=== PATIENT | male | born 1955 | race Two or more races ===

== ENCOUNTER → 2017-05-06 | Outpatient (CLI) | payer OTHER ==
--- NOTE | 2017-05-06 10:13 | Diagnostic Imaging Report ---
PROCEDURE:US LIVER COMPARISON:[facility], US, US ABDOMEN COMPLETE, 02/08/2015, 8:05. INDICATIONS:elevated LFTs TECHNIQUE: Mercado scale and color Doppler ultrasound liver FINDINGS: Right liver span 16.7 cm. The liver is diffusely echogenic and coarsened. No intrahepatic bile duct dilation. Portal vein diameter 1.3 cm; normal flow direction. Normal gallbladder. Wall thickness 2 mm. Common bile diameter 3 mm. CONCLUSION: 1. Enlarged echogenic liver consistent with steatosis. Correlate for CRUZ. 2. Enlarged portal vein suggesting developing portal hypertension. Dictated by: Gage Rai M.D. on 05/06/2017 at 10:23 Electronically approved by: Gage aRi M.D. on 05/06/2017 at 10:23
== END ==
LOC: US 08:33
PROVIDERS: ATTEND Family Medicine
DX: R79.89 Other specified abnormal findings of blood chemistry (principal)
CPT/HCPCS: 76705

== ENCOUNTER → 2017-10-29 | Outpatient (CLI) | payer OTHER ==
[~2017-10-29] MED LIST: IOPAMIDOL 370 MG/ML 200 ML INFUS..BTL INJ ONE; SODIUM CHLORIDE 0.9% 50ML 50 ML ONE
--- NOTE | 2017-10-29 14:57 | Diagnostic Imaging Report ---
PROCEDURE: CT ABDOMEN WITH CONTRAST TECHNIQUE: The abdomen was scanned utilizing a multidetector helical scanner from the diaphragm to the iliac crest after the IV administration of 100 cc of Isovue 370 and the oral administration of water. Coronal and sagittal multiplanar reformations were obtained. COMPARISON: [facility], US, US LIVER, 05/06/2017, 9:11. INDICATIONS: RIGHT UPPER QUAD PAIN FINDINGS: LOWER THORAX: Lung bases are clear. HEPATOBILIARY: Moderate diffuse hepatic steatosis. Liver is in the upper limit of normal, measuring 15.8 cm in the right midclavicular line. Normal contour. No focal lesions. No intra-or extrahepatic biliary ductal dilation. Gallbladder is unremarkable. SPLEEN: Mild splenomegaly, measuring 15.0 cm in AP diameter. PANCREAS: No focal masses or ductal dilatation. ADRENALS: No adrenal nodules. KIDNEYS: No hydronephrosis, stones, or solid mass lesions. 1.0 x 1.0 fluid density simple cysts in the right mid to inferior aspect (series 2, image 50). PERITONEUM / RETROPERITONEUM: No free air or fluid. LYMPH NODES: No lymphadenopathy. VESSELS: Celiac trunk, superior and inferior mesenteric, and bilateral renal arteries are patent. Portal, superior mesenteric, and splenic veins are patent. GI TRACT: Visualized portions of the bowel show no dilation or obstruction. BONES AND SOFT TISSUES: No aggressive lytic lesions. Soft tissues are grossly unremarkable. IMPRESSION: 1. no acute abdominopelvic abnormalities. Specifically, no acute abnormal findings in the right upper abdomen to explain the patient's pain. 2. Liver is in the upper limit of normal in size, with moderate diffuse hepatic steatosis. No focal lesions. 3. No intra-or extrahepatic biliary ductal dilation. Gallbladder has an unremarkable appearance, without radiopaque stones or wall thickening. Byron Desai M.D. Dictated by: Byron Desai M.D. on 10/29/2017 at 15:02 Electronically approved by: Byron Desai M.D. on 10/29/2017 at 15:02
== END ==
LOC: CT 13:35
PROVIDERS: ATTEND Family Medicine
DX: R10.11 Right upper quadrant pain (principal); R14.0 Abdominal distension (gaseous)
CPT/HCPCS: 74160; Q9967